=== PATIENT | female | born 1980 | race Caucasian/White ===

== ENCOUNTER → 2024-03-13 17:18 | Outpatient (CLI) | payer OTHER, SELFPAY ==
--- NOTE | 2024-03-13 17:20 | DI.MG.S_ITS ---
BILATERAL DIGITAL SCREENING MAMMOGRAM 3D/2D WITH CAD: 03/13/2024 CLINICAL: Baseline exam. Routine screening. No prior exams were available for comparison. The breasts are heterogeneously dense, which may obscure small masses (category c / 51-75% glandular tissue). Current study was also evaluated with a Computer Aided Detection (CAD) system. There is a focal asymmetry in the left breast at 1 o'clock middle depth. No other significant masses, calcifications, or other findings are seen in either breast. IMPRESSION: INCOMPLETE: NEED ADDITIONAL IMAGING EVALUATION The focal asymmetry in the left breast is indeterminate. Additional views with possible ultrasound are recommended. Based on the Tyrer Cuzick model (a risk assessment model) the patient's lifetime risk is 13.5% and her 10 year risk is 2.0%. According to the ACR, ACS, and NCCN guidelines, an annual breast MRI exam along with mammogram is recommended if the patient's lifetime risk is 20% or greater. This exam was interpreted at Station ID: [id number]. NOTE: For mammograms, a report in lay terms will be sent to the patient. Approximately 15% of breast malignancies will not be visualized mammographically. In the management of a palpable breast mass, a negative mammogram must not discourage biopsy of a clinically suspicious lesion. Electronically Signed By: Betty phipps/:03/14/2024 15:54:55 letter sent: Additional Imaging Needed ACR BI-RADS Category 0: Incomplete: Need Additional Imaging Evaluation
== END ==
PROVIDERS: PCP Physician Assistant; Referring Provider Family Medicine; Visit Provider Family Medicine
DX: Z12.31 Encounter for screening mammogram for malignant neoplasm of breast (principal); R92.333 Mammographic heterogeneous density, bilateral breasts
CPT/HCPCS: 77063; 77067

== ENCOUNTER → 2024-04-20 11:58 | Outpatient (CLI) | payer OTHER, SELFPAY ==
--- NOTE | 2024-04-20 11:59 | DI.MG.S_ITS ---
UNILATERAL LEFT DIGITAL DIAGNOSTIC MAMMOGRAM 3D/2D WITH ADDITIONAL VIEWS: 04/20/2024 CLINICAL: Additional evaluation requested from prior study. Comparison is made to exam dated: 03/13/2024 mammogram - [facility]. The breasts are heterogeneously dense, which may obscure small masses (category c / 51-75% glandular tissue). There is a focal asymmetry in the left breast at 2 o'clock posterior depth. This corresponds to finding seen on recent baseline screening mammogram. No other significant masses or calcifications are seen in the breast. IMPRESSION: INCOMPLETE: NEED ADDITIONAL IMAGING EVALUATION The focal asymmetry in the left breast is indeterminate. An ultrasound is recommended for further evaluation and is scheduled to immediately follow this examination. Based on the Tyrer Cuzick model (a risk assessment model) the patient's lifetime risk is 14.0% and her 10 year risk is 2.1%. According to the ACR, ACS, and NCCN guidelines, an annual breast MRI exam along with mammogram is recommended if the patient's lifetime risk is 20% or greater. This exam was interpreted at Station ID: [id number]. NOTE: For mammograms, a report in lay terms will be sent to the patient. Approximately 15% of breast malignancies will not be visualized mammographically. In the management of a palpable breast mass, a negative mammogram must not discourage biopsy of a clinically suspicious lesion. Electronically Signed By: Lainey Padilla M.D., Ph.D. eb/:04/21/2024 00:03:34 letter sent: Additional Imaging Needed ACR BI-RADS Category 0: Incomplete: Need Additional Imaging Evaluation
--- NOTE | 2024-04-20 11:59 | DI.US.S_ITS ---
LIMITED ULTRASOUND OF LEFT BREAST AND AXILLA: 04/20/2024 CLINICAL: Patient returns today to evaluate a focal asymmetry in the left breast. Comparison is made to exams dated: 04/20/2024 mammogram and 03/13/2024 mammogram - [facility]. Color flow and real-time ultrasound of the left breast 2 o'clock, and axilla regions were performed. Andrew scale images of the real-time examination were reviewed. There is a 0.6 cm x 0.4 cm x 0.2 cm oval mass with a circumscribed margin in the left breast at 2 o'clock, 5 cm from the nipple. This oval mass is hypoechoic. This likely correlates with mammography findings. Color flow imaging demonstrates that there is an adjacent vascularity. IMPRESSION: PROBABLY BENIGN Left breast 0.6 cm oval mass at 2 o'clock position, initially seen on baseline mammogram. Finding may represent an intramammary lymph node and is probably benign. Follow-up mammogram and ultrasound in 6 months is recommended. Findings and recommendations were conveyed to the patient during today's evaluation. This exam was interpreted at Station ID: [id number]. Electronically Signed By: Lainey Padilla M.D., Ph.D. eb/:04/21/2024 00:17:29 letter sent: Followup Recommended ACR BI-RADS Category 3: Probably Benign
== END ==
PROVIDERS: PCP Physician Assistant; Referring Provider Family Medicine; Visit Provider Family Medicine
DX: R92.8 Other abnormal and inconclusive findings on diagnostic imaging of breast (principal); R92.333 Mammographic heterogeneous density, bilateral breasts; N63.21 Unspecified lump in the left breast, upper outer quadrant
CPT/HCPCS: 76642; 77065; G0279

== ENCOUNTER → 2024-10-19 09:59 | Outpatient (CLI) | payer OTHER, SELFPAY ==
--- NOTE | 2024-10-19 10:05 | DI.MG.S_ITS ---
MM diagnostic mammo unilat LT, US breast LT limited: 10/19/2024 BI-RADS: 4A CLINICAL: 44-year old female for left diagnostic mammogram and left diagnostic breast ultrasound. The patient presents for short interval follow-up. Tyrer-Cuzick lifetime risk of 10.5%. No personal or first-degree family history of breast cancer. PRIOR EXAMS 04/20/2024, 03/13/2024. MAMMOGRAPHY TECHNIQUE: 2D and 3D (tomosynthesis) digital mammographic views obtained, with additional images as needed for full coverage. Current study was also evaluated with a Computer Aided Detection (CAD) system. ULTRASOUND TECHNIQUE Left targeted breast ultrasound of the area of clinical interest and the axilla was performed with image documentation. Real-time cid scale and color doppler imaging of the area of clinical interest was performed with image documentation. DENSITY Left: C. The breasts are heterogeneously dense, which may obscure small masses. MAMMOGRAPHY FINDINGS Left: Upper Outer at 2:00, Posterior depth, measuring 0.5cm: There is a stable focal asymmetry present. ULTRASOUND FINDINGS Left: Upper Outer at 2:00, 5 cm from nipple, measuring 0.4 x 0.6 x 0.3 cm: There is an indistinct, hypoechoic cyst vs solid mass present. This finding is similar in size compared to the prior, however the margins appear to be indistinct on the present examination. IMPRESSION: Left (CvS): Upper Outer at 2:00, 5 cm from nipple, measuring 0.4 x 0.6 x 0.3 cm * Low Suspicion for Malignancy. RECOMMENDATIONS Left: Upper Outer at 2:00, 5 cm from nipple * Ultrasound-guided biopsy for further evaluation. COMMENTS: Findings and recommendations were conveyed to the patient during today's evaluation by Dr. Mcgarry. OVERALL ASSESSMENT CATEGORY BI-RADS-4: Suspicious. ELECTRONICALLY SIGNED: Cheli Martinez M.D. on 10/19/2024 at 03:01:07 PM PT Interpreting Station ID: [id number]
--- NOTE | 2024-10-19 10:06 | DI.US.S_ITS ---
PROCEDURE: US BREAST LT LIMITED COMPARISON: [facility], BREAST LT LIMITED, 04/20/2024, 12:46. INDICATIONS: F/U ABNORMAL US OF LT BREAST FINDINGS: IMPRESSION: Dictated by: Cheli Martinez M.D. on 10/19/2024 at 14:56 Approved by: Cheli Martinez M.D. on 10/19/2024 at 16:07
--- NOTE | 2024-10-19 11:10 | DI.US.S_ITS ---
Patient Name: SCAR BANKS date: 1980 Sex: F Attending Physician: Mitchel Indications: Date: 10/19/2024 15:01 At the request of: ARIELLE PARMAR Procedure: US breast LT limited MM diagnostic mammo unilat LT, US breast LT limited: 10/19/2024 BI-RADS: 4A CLINICAL: 44-year old female for left diagnostic mammogram and left diagnostic breast ultrasound. The patient presents for short interval follow-up. Tyrer-Cuzick lifetime risk of 10.5%. No personal or first-degree family history of breast cancer. PRIOR EXAMS 04/20/2024, 03/13/2024. MAMMOGRAPHY TECHNIQUE: 2D and 3D (tomosynthesis) digital mammographic views obtained, with additional images as needed for full coverage. Current study was also evaluated with a Computer Aided Detection (CAD) system. ULTRASOUND TECHNIQUE Left targeted breast ultrasound of the area of clinical interest and the axilla was performed with image documentation. Real-time cid scale and color doppler imaging of the area of clinical interest was performed with image documentation. DENSITY Left: C. The breasts are heterogeneously dense, which may obscure small masses. MAMMOGRAPHY FINDINGS Left: Upper Outer at 2:00, Posterior depth, measuring 0.5cm: There is a stable focal asymmetry present. ULTRASOUND FINDINGS Continued Report - Page 2 of 2 Patient Name: SCAR BANKS date: 1980 Sex: F Attending Physician: Mitchel Indications: Date: 10/19/2024 15:01 At the request of: ARIELLE PARMAR Procedure: US breast LT limited Left: Upper Outer at 2:00, 5 cm from nipple, measuring 0.4 x 0.6 x 0.3 cm: There is an indistinct, hypoechoic cyst vs solid mass present. This finding is similar in size compared to the prior, however the margins appear to be indistinct on the present examination. IMPRESSION: Left (CvS): Upper Outer at 2:00, 5 cm from nipple, measuring 0.4 x 0.6 x 0.3 cm * Low Suspicion for Malignancy. RECOMMENDATIONS Left: Upper Outer at 2:00, 5 cm from nipple * Ultrasound-guided biopsy for further evaluation. COMMENTS: Findings and recommendations were conveyed to the patient during today's evaluation by Dr. Mcgarry. OVERALL ASSESSMENT CATEGORY BI-RADS-4: Suspicious. ELECTRONICALLY SIGNED: Cheli Martinez M.D. on 10/19/2024 at 03:01:07 PM PT Interpreting Station ID: [id number]
== END ==
LOC: MAMMO 10:02
PROVIDERS: PCP Family Medicine; Referring Provider Family Medicine; Visit Provider Family Medicine
DX: R92.8 Other abnormal and inconclusive findings on diagnostic imaging of breast (principal); R92.332 Mammographic heterogeneous density, left breast; N63.22 Unspecified lump in the left breast, upper inner quadrant
CPT/HCPCS: 76642; 77065; G0279